=== PATIENT | male | born 1985 | race Caucasian/White ===

== ENCOUNTER 2021-07-05 18:40 | Emergency (ER) | payer OTHER ==
[~2021-07-05] VITALS: Ht 177.8 cm; Wt 80.0 kg
[~2021-07-05 18:40] MED LIST: AMOXICILLIN500 M1 OR; KEFLEX500 MG PO; PERCOCET 5/325M1 TAB OR; TRAMADOL HCL50 MG PO; ULTRAM50 MG OR
[2021-07-05 19:03] VITALS: BP 143/89
[2021-07-05 19:16] VITALS: BP 111/74
[2021-07-05] MEDS ORDERED: BACTRIM DS1 TAB PO (20:04)
[2021-07-05 20:13] VITALS: BP 111/74
== END 2021-07-05 20:19 | disposition home or self-care (01) ==
LOC: ED 18:40
DX: L02.412 Cutaneous abscess of left axilla (principal); S20.212A Contusion of left front wall of thorax, initial encounter; F17.210 Nicotine dependence, cigarettes, uncomplicated; V18.2XXA Unspecified pedal cyclist injured in noncollision transport accident in nontraffic accident, initial encounter

== ENCOUNTER 2021-07-08 09:27 | Emergency (ER) | payer OTHER ==
[~2021-07-08] VITALS: Ht 177.8 cm; Wt 82.0 kg
[~2021-07-08 09:27] MED LIST changes: +BACTRIM DS1 TAB PO
[2021-07-08] MEDS ORDERED: CEPHALEXIN500 M1 PO (11:04)
[2021-07-08 11:11] VITALS: BP 124/87
[2021-07-09] MEDS ORDERED: HYDROCO/APAP1 TA9 PO (02:17)
== END 2021-07-08 11:14 | disposition home or self-care (01) ==
LOC: ED 09:27
DX: Z48.01 Encounter for change or removal of surgical wound dressing (principal); F17.200 Nicotine dependence, unspecified, uncomplicated

== ENCOUNTER 2021-07-08 22:25 | Emergency (ER) | payer OTHER ==
[~2021-07-08] VITALS: Ht 177.8 cm; Wt 77.0 kg
[~2021-07-08 22:25] MED LIST changes: +CEPHALEXIN500 M1 PO
[2021-07-08 23:15] LABS: HEMATOCRIT 42.9 % (39.0-50.0); HEMOGLOBIN 14.3 g/dl (14.0-18.0); IMMATURE GRANULOCYTES 0.1 % (0.0-5.0); MEAN CELL VOLUME 88.8 fL CALC (80.0-100.0); MEAN CORPUSCULAR HGB 29.6 pG CALC (26.0-32.0); MEAN CORPUSCULAR HGB CONC 33.3 g/dL CAL (32.0-36.0); NEUT# 3.82 thou/uL (1.82-7.42); RED BLOOD COUNT 4.83 mill/uL (4.70-6.10); RED CELL DISTRI WIDTH 12.9 % (11.5-15.5)
[2021-07-08 23:16] LABS: URINE BILIRUBIN - DIPSTICK NEGATIVE (NEGATIVE); URINE BLOOD DIPSTICK NEGATIVE (NEGATIVE); URINE COLOR YELLOW; URINE GLUCOSE - DIPSTICK NEGATIVE (NEGATIVE); URINE KETONE NEGATIVE (NEGATIVE); URINE LEUK ESTERASE NEGATIVE (NEGATIVE); URINE PROTEIN - DIPSTICK NEGATIVE (NEG-TRACE); URINE SPECIFIC GRAVITY >=1.030; URINE UROBILINOGEN - DIPSTICK 0.2 E.U./dL (0.2)
[2021-07-08 23:18] LABS: URINE NITRITE - DIPSTICK NEGATIVE (Negative)
[2021-07-08 23:30] LABS: ALBUMIN 4.5 g/dL (3.2-5.0); ALKALINE PHOSPHATASE 117 u/l (38-126); AMYLASE 87 u/l (30-110); ANION GAP 14 (6-22 (CALC)); BUN 16 mg/dL (9-20); BUN/CREATININE RATIO 16 (12-20 (CALC)); CARBON DIOXIDE 26 mmol/l (22-30); CHLORIDE 104 mmol/l (95-108); ETHYL ALCOHOL 0 mg/dl (0-30); GFR > 60 ML/MIN (>=60 (CALC)); GFR FOR AFR.AMER. > 60 ML/MIN (>=60 (CALC)); LIPASE 206 u/l (23-300); POTASSIUM 3.9 mmol/l (3.5-5.1); SGOT/AST 31 u/l (17-59); SODIUM 139 mmol/l (137-146); TOTAL PROTEIN 7.8 g/dL (6.3-8.2)
[2021-07-08 23:31] LABS: BILIRUBIN, TOTAL 0.4 mg/dL (0.0-1.4)
[2021-07-08 23:32] LABS: ACT PARTIAL THROMBO TIME 24.7 SECONDS (20.0-32.5)
[2021-07-09] MEDS ORDERED: HYDROCO/APAP1 TA9 PO (02:17)
[2021-07-09 02:23] VITALS: BP 131/88
== END 2021-07-09 02:32 | disposition home or self-care (01) | DRG 605 ==
LOC: ED 22:25
DX: S20.411A Abrasion of right back wall of thorax, initial encounter (principal); S42.021A Displaced fracture of shaft of right clavicle, initial encounter for closed fracture; S80.01XA Contusion of right knee, initial encounter; S40.211A Abrasion of right shoulder, initial encounter; S63.502A Unspecified sprain of left wrist, initial encounter; V19.40XA Pedal cycle driver injured in collision with unspecified motor vehicles in traffic accident, initial encounter; F17.200 Nicotine dependence, unspecified, uncomplicated